=== PATIENT | female | born 2000 | race African-American/Black ===

== ENCOUNTER 2020-05-12 18:29 | Emergency (ER) | payer OTHER ==
[2020-05-12 19:00] VITALS: BP 139/64; PULSE 88; TEMP 97.8; BMI 32.8
[2020-05-12] MEDS ORDERED: ACETAMINOPHEN 325 MG TABLET (FP) PO ONE (20:35)
[2020-05-12] MEDS ORDERED: ACETAMINOPHEN 325 MG TABLET (FP) ONE (21:27)
== END 2020-05-12 21:33 | disposition home or self-care (01) ==
LOC: JER 18:29
DX: R07.9 Chest pain, unspecified (principal)
CPT/HCPCS: 71046-TC-FY; 93005; 93010; 99284-25

== ENCOUNTER 2022-07-17 18:23 | Emergency (ER) | payer OTHER ==
[2022-07-17 18:30] VITALS: BP 144/92; PULSE 107; RESP 18; TEMP 99.1; BMI 31.3
== END 2022-07-17 20:07 | disposition home or self-care (01) ==
LOC: JER 18:23
DX: U07.1 COVID-19 (principal)
CPT/HCPCS: 0241U-QW; 99283-25